=== PATIENT | male | born 1995 | race Two or more races ===

== ENCOUNTER 2021-01-11 08:55 | Day surgery (SDC) | payer OTHER ==
[~2021-01-11] VITALS: Ht 160 cm; Wt 72.1 kg
[~2021-01-11 08:55] MED LIST: LR 1,000 ML IV ONE; ceFAZolin SOD 2 GM in IV 1 EA IV ONE
[2021-01-11] MEDS ORDERED: BACITRACIN OINTMENT 30GM TUBE As Ordered ONE ×2 (10:23→10:48)
[2021-01-11] MEDS ORDERED: propofoL 200 MG/20 ML VIAL As Ordered ONE (10:26)
[2021-01-11] MEDS ORDERED: LIDOCAINE 2% 100MG/5ML SDV (FOR ANES.) As Ordered ONE (10:26)
[2021-01-11] MEDS ORDERED: MIDAZOLAM INJ 2MG/2ML VIAL (J2250 PER 1MG) As Ordered ONE (10:27)
[2021-01-11] MEDS ORDERED: dexameTHASONE 4 MG/ML 1ML VIAL (J1100 PER 1MG) As Ordered ONE (10:27)
[2021-01-11] MEDS ORDERED: ONDANSETRON 4MG/2ML VIAL As Ordered ONE (10:27)
[2021-01-11] MEDS ORDERED: fentaNYL 100 MCG/2 ML INJECTION (J3010) As Ordered ONE ×2 (10:27→11:27)
[2021-01-11] MEDS ORDERED: OXYC1TAB23 PO (11:04)
[2021-01-11] MEDS ORDERED: ALBUTEROL 6.7GM INHALER **FOR ANES. CART/OMNICELL ONLY As Ordered ONE (11:52)
[2021-01-11] MEDS ORDERED: ACETAMINOPHEN 1000MG 100ML IV BTL (OFIRMEV) (J0131 PER 10MG) As Ordered ONE (12:22)
[2021-01-11] MEDS ORDERED: KETOROLAC 60MG 2ML VIAL As Ordered ONE (12:24)
[2021-01-11] MEDS ORDERED: oxyCODONE 5MG TAB PO PRN (12:40)
[2021-01-11] MEDS ORDERED: fentaNYL 100 MCG/2 ML INJECTION (J3010) IV PRN (12:40)
[2021-01-11] MEDS ORDERED: ONDANSETRON 4MG/2ML VIAL IV PRN (12:40)
[2021-01-11] MEDS ORDERED: LR 1,000 ML IV SCH (12:40)
[2021-01-11] MEDS ORDERED: PERCOCET 5MG/325MG TAB PO PRN (12:45)
[2021-01-11 15:00] VITALS: BP 132/71
--- NOTE | 2021-01-11 15:16 | RO ---
OPERATIVE NOTE DATE OF OPERATION: 01/11/2021 PREOPERATIVE DIAGNOSIS: Phimosis. POSTOPERATIVE DIAGNOSIS: Phimosis. PROCEDURE: Circumcision. SURGEON: Trey Simon MD SPEECH ASSISTANT: None. ANESTHESIA: General. OPERATIVE INDICATIONS: This is a 24-year-old male with phimosis who was brought to the operating room today for treatment. DESCRIPTION OF PROCEDURE: The patient was brought to the operating room and general anesthesia was induced. Prophylactic antibiotics were infused. He has then placed in the supine position and prepped and draped in the usual sterile fashion. At this point, circumcising incisions were made at the level of the coronal sulcus with the foreskin retracted over the glans and then also with foreskin retracted down off the glans. All the foreskin in between the two incisions was then removed using electrocautery. Once the foreskin was removed, any areas of bleeding were controlled with electrocautery. When satisfied with hemostasis, the skin of the penile shaft was then re-approximated to the glans with interrupted 3-0 chromic sutures. Once that was done, dry dressings were applied including a Gaetano and Coban and then this was my conclusion of the procedure. The patient was then awakened from anesthesia and transferred to the recovery room in stable condition. Estimated blood loss: 10 ml. Complications: None. Specimens: Foreskin. PLAN: The patient will keep his dressings on and remove them in two days. He will follow up in urology clinic in 2 to 3 weeks for a postoperative visit. SUZANNA
== END 2021-01-11 15:05 | disposition home or self-care (01) ==
LOC: M SDC 08:55
PROVIDERS: ATTEND Urology
DX: N47.1 Phimosis (principal)
CPT/HCPCS: 54161; 88304; J0131; J0690; J1100; J1885; J2250; J2405; J3010